=== PATIENT | female | born 1975 | race Caucasian/White ===

== ENCOUNTER 2017-06-19 09:42 | Day surgery (SDC) | payer OTHER ==
[2017-06-17 13:18] VITALS: BMI 25.2
[~2017-06-19 09:42] MED LIST: LACTATED RINGERS 1,000 ML IV SCH
[2017-06-19 11:00] VITALS: RESP 16; TEMP 98.6
[2017-06-19] MEDS ORDERED: LIDOCAINE 1% 20 ML VIAL (10MG/ML) FOR IV START INTRADERMA ONE (11:10)
[2017-06-19] MEDS ORDERED: LIDOCAINE 1% INJ 10MG/ML (20 ML MDV) ONE (11:22)
[2017-06-19] MEDS ORDERED: PROPOFOL 10 MG/ML 20 ML VIAL IV ONE (11:22)
--- NOTE | 2017-06-19 11:44 | P.PCN ---
Date of Procedure: 06/19/17 Preoperative Diagnosis: Postoperative Diagnosis: Procedure(s) Performed: Brief history: Patient is a pleasant 42-year-old white female, scheduled for an elective upper endoscopy as well as colonoscopy as a part of evaluation of severe GERD and alternating diarrhea constipation associated with abdominal bloating for the last 3 years duration. Procedure performed: Esophagogastroduodenoscopy with biopsy Colonoscopy Preoperative diagnosis: GERD Change in bowel habits and abdominal bloating Anesthesia: MAC Procedure: After informed consent was obtained from the patient was brought into the endoscopy unit and IV sedation was administered by anesthesia under continuous monitoring. Initially upper endoscopy was done. The Olympus GF 160 video endoscope was inserted inserted into the mouth and esophagus intubated without any difficulty and was gradually advanced into the stomach and duodenum and carefully examined. The bulb and second part of the duodenum appeared normal. The scope was then withdrawn into the stomach adequately insufflated with air and upon careful examination the antrum and body, cardia and fundus appeared normal. The scope was then withdrawn into the esophagus. The GE junction was located at 40 cm to the incisors. It appeared regular with no erythema erosions or ulcerations. Rest of the esophagus appeared normal. Patient tolerated the procedure well. At this time the patient continued to remain sedation. Initial digital rectal examination was normal. Olympus CF 160 video colonoscope was then inserted into the rectum and gradually advanced to the cecum without any difficulty. Careful examination was performed as the scope was gradually being withdrawn. The prep was excellent. Terminal ileum was visualized and 20 cm seen which appeared normal. The cecum, ascending colon, transverse colon, descending colon , sigmoid colon and rectum appeared normal. Retroflexion was performed in the rectum and no lesions were noted. Patient tolerated the procedure well. Impression: 1. Upper endoscopy revealed mild antral gastritis but no evidence of esophagitis or peptic ulcer disease 2. Colonoscopy was essentially within normal limits with no evidence of colitis or colorectal neoplasia Recommendations: Findings of this examination were discussed with the patient as well as her family. She was advised to follow with the biopsy results. She will continue with her current proton pump inhibitor and follow antireflux measures. She can have a repeat colonoscopy in 10 years Implants: Indications for Procedure: Operative Findings: Description of Procedure:
[2017-06-19 11:48] VITALS: BP 108/56
[2017-06-19 12:01] VITALS: PULSE 78
== END 2017-06-19 12:21 | disposition home or self-care (01) ==
LOC: ORWHC2ENDO 09:42
PROVIDERS: ATTEND Internal Medicine Gastroenterology
DX: R19.4 Change in bowel habit (principal); K21.0 Gastro-esophageal reflux disease with esophagitis; K29.50 Unspecified chronic gastritis without bleeding; Z88.2 Allergy status to sulfonamides; Z79.2 Long term (current) use of antibiotics; Z79.899 Other long term (current) drug therapy
CPT/HCPCS: 88305; 88342; 43239; J2001; J2704

== ENCOUNTER → 2019-12-21 | Outpatient (CLI) | payer OTHER ==
--- NOTE | 2019-12-26 09:31 | MM ---
Reason for exam: screening (asymptomatic). Last mammogram was performed 3 years and 5 months ago. History: Family history of breast cancer in paternal grandmother. Physical Findings: A clinical breast exam by your physician is recommended on an annual basis and results should be correlated with mammographic findings. MG Screening Mammo w CAD Bilateral CC and MLO view(s) were taken. Prior study comparison: July 28, 2016, bilateral MG diagnostic mammo w CAD SON[facility]. August 09, 2015, bilateral MG screening mammo w CAD. The breast tissue is heterogeneously dense. This may lower the sensitivity of mammography. Focal asymmetry left middle position. This finding is changed when compared with previous exams. ASSESSMENT: Incomplete: need additional imaging evaluation, BI-RAD 0 RECOMMENDATION: Special view mammogram of the left breast. If lesion persists on supplemental views, image directed ultrasound is recommended. [facility] will attempt to contact patient to return for supplemental views and ultrasound if indicated.
== END | disposition home or self-care (01) ==
LOC: RADMAMWWP 07:41
PROVIDERS: ATTEND Family Medicine
DX: Z12.31 Encounter for screening mammogram for malignant neoplasm of breast (principal)
CPT/HCPCS: 77067

== ENCOUNTER → 2019-12-30 | Outpatient (CLI) | payer OTHER ==
--- NOTE | 2020-01-02 08:21 | MM ---
Reason for exam: additional evaluation requested from abnormal screening. Last mammogram was performed less than 1 month ago. History: Family history of breast cancer in paternal grandmother. Physical Findings: Nurse did not find any significant physical abnormalities on exam. MG Work Up Mamm w CAD LT Spot compression CC, spot compression MLO, and ML view(s) were taken of the left breast. Prior study comparison: December 21, 2019, bilateral MG screening mammo w CAD. July 28, 2016, bilateral MG diagnostic mammo w CAD SONIA. The breast tissue is heterogeneously dense. This may lower the sensitivity of mammography. The previously seen abnormality resolves on additional views and appears as fibroglandular tissue compatible with summation. These results were verbally communicated with the patient and result sheet given to the patient on 12/30/19. ASSESSMENT: Negative, BI-RAD 1 RECOMMENDATION: Return to routine screening mammogram schedule for both breasts.
== END | disposition home or self-care (01) ==
LOC: RADMAMWWP 14:33
PROVIDERS: ATTEND Family Medicine
DX: R92.8 Other abnormal and inconclusive findings on diagnostic imaging of breast (principal)
CPT/HCPCS: 77065

== ENCOUNTER 2023-10-01 09:31 | Day surgery (SDC) | payer BC, OTHER ==
--- NOTE | 2023-10-01 10:02 | P.GSHP ---
History of Present Illness H&P Date: 10/01/23 CHIEF COMPLAINT: GERD HISTORY OF PRESENT ILLNESS: The patient is a 48-year-old female who presents reports gastroesophageal reflux disease. Upper endoscopy was offered for further evaluation and management. PAST MEDICAL HISTORY: Please see list. PAST SURGICAL HISTORY: Please see list. MEDICATIONS: Please see list. ALLERGIES: Please see list. SOCIAL HISTORY: No illicit drug use FAMILY HISTORY: No reports of Crohn disease or ulcerative colitis. REVIEW OF ORGAN SYSTEMS: CONSTITUTIONAL: No reports of fevers or chills. GI: Denies any blood in stools or constipation. PHYSICAL EXAM: VITAL SIGNS: Stable GENERAL: Well-developed and pleasant in no acute distress. HEENT: No scleral icterus. Extraocular movements grossly intact. Moist buccal mucosa. NECK: Supple without lymphadenopathy. CHEST: Unlabored respirations. Equal bilateral excursions. CARDIOVASCULAR: Regular rate and rhythm. Distal 2+ pulses. ABDOMEN: Soft, nondistended. MUSCULOSKELETAL: No clubbing, cyanosis, or edema. ASSESSMENT: 1. Gastroesophageal reflux disease PLAN: 1. Recommend proceeding with an upper endoscopy Past Medical History Past Medical History: Asthma, GERD/Reflux, Hypertension Additional Past Medical History / Comment(s): constipated and diarrhea. heartburn, with throat irritation and "sometimes blood in emesis". "geographical tongue". bumps around outside of tongue painful. lyme disease with joint issues History of Any Multi-Drug Resistant Organisms: None Reported Past Surgical History: Cholecystectomy, Hysterectomy, Orthopedic Surgery, Tubal Ligation Additional Past Surgical History / Comment(s): knee surg, egd, Past Anesthesia/Blood Transfusion Reactions: No Reported Reaction Additional Past Anesthesia/Blood Transfusion Reaction / Comment(s): no hx blood transfusion Smoking Status: Never smoker - Past Family History Mother Family Medical History: Cancer Additional Family Medical History / Comment(s): uterine Father Family Medical History: No Reported History Medications and Allergies Home Medications Medication Instructions Recorded Confirmed Type Omeprazole [PriLOSEC] 20 mg PO DAILY 06/17/17 09/29/23 History Escitalopram [Lexapro] 20 mg PO DAILY 09/29/23 09/29/23 History Fluticasone Propion/Salmeterol 1 puff INHALATION BID 09/29/23 09/29/23 History [Advair 500-50 Diskus] Losartan/Hydrochlorothiazide 1 each PO DAILY 09/30/23 09/30/23 History [Losartan-Hctz 100-25 mg Tab] Propranolol HCl [Inderal] 60 mg PO BID 09/30/23 09/30/23 History Allergies Allergy/AdvReac Type Severity Reaction Status Date / Time Sulfa (Sulfonamide Allergy Rash/Hives Verified 09/29/23 16:08 Antibiotics)
[2023-10-01] MEDS ORDERED: LACTATED RINGERS 1,000 ML IV ONE (10:12)
[2023-10-01 10:23] VITALS: TEMP 98
[2023-10-01] MEDS ORDERED: PROPOFOL 10 MG/ML 20 ML VIAL IV ONE (10:47)
[2023-10-01] MEDS ORDERED: LIDOCAINE 1% INJ 10MG/ML (20 ML MDV) ONE (10:47)
--- NOTE | 2023-10-01 11:04 | P.PCN ---
Date of Procedure: 10/01/23 Description of Procedure: PREOPERATIVE DIAGNOSIS: Gastroesophageal reflux disease. Epigastric abdominal pain POSTOPERATIVE DIAGNOSIS: Gastroesophageal reflux disease. Gastritis. Diaphragmatic hiatal hernia OPERATION: Esophagogastroduodenoscopy with biopsies along esophagus, antrum and duodenum SURGEON: Robyn Lozada MD ANESTHESIA: MAC. INDICATIONS: The patient is a 48-year-old female who presents with reflux disease. Benefits and risks of the procedure were described. Informed consent was obtained. DESCRIPTION: The patient was brought into the endoscopy suite and laid in the left lateral decubitus position. An Olympus gastroscope was passed along the posterior oropharynx down to the distal esophagus where the squamocolumnar junction was encountered at 37 cm from the incisors. The stomach was entered and no bile reflux was found. Additional findings are listed below. Biopsies with cold forceps were obtained of the antrum. The first through third portion of the duodenum was examined. Retroflexion of the scope confirmed Hill grade 2 lower esophageal valve. The squamocolumnar junction demonstrated LA grade B erosive esophagitis. The stomach was desufflated. The patient tolerated the procedure well. FINDINGS: Squamocolumnar junction 37 cm from the incisors. Diaphragmatic hiatus at 40 cm. Hiatal hernia, 3 cm, sliding type Hill grade 2 lower esophageal valve. LA grade B erosive esophagitis. biopsies obtained Biopsies obtained of the duodenum. Chronic gastritis with biopsies obtained. RECOMMENDATIONS: Recommend antireflux operation. Plan - Discharge Summary Discharge Rx Participant: No New Discharge Prescriptions: Continue Omeprazole [PriLOSEC] 20 mg PO DAILY Escitalopram [Lexapro] 20 mg PO DAILY Fluticasone Propion/Salmeterol [Advair 500-50 Diskus] 1 puff INHALATION BID Losartan/Hydrochlorothiazide [Losartan-Hctz 100-25 mg Tab] 1 each PO DAILY Propranolol HCl [Inderal] 60 mg PO BID Discharge Medication List Omeprazole [PriLOSEC] 20 mg PO DAILY 06/17/17 [History] Escitalopram [Lexapro] 20 mg PO DAILY 09/29/23 [History] Fluticasone Propion/Salmeterol [Advair 500-50 Diskus] 1 puff INHALATION BID 09/29/23 [History] Losartan/Hydrochlorothiazide [Losartan-Hctz 100-25 mg Tab] 1 each PO DAILY 09/30/23 [History] Propranolol HCl [Inderal] 60 mg PO BID 09/30/23 [History] Follow up Appointment(s)/Referral(s): Robyn Lozada MD [STAFF PHYSICIAN] - 10/27/23 9:30 am Patient Instructions/Handouts: Hiatal Hernia (DC) Discharge Disposition: HOME SELF-CARE
[2023-10-01 11:31] VITALS: BP 119/61; PULSE 64; RESP 16
== END 2023-10-01 11:42 | disposition home or self-care (01) ==
LOC: ORWHC2ENDO 09:31
PROVIDERS: ATTEND Surgery Plastic and Reconstructive Surgery
DX: K29.50 Unspecified chronic gastritis without bleeding (principal); K21.00 Gastro-esophageal reflux disease with esophagitis, without bleeding; K44.9 Diaphragmatic hernia without obstruction or gangrene; I10 Essential (primary) hypertension; F41.9 Anxiety disorder, unspecified; F32.A Depression, unspecified; J45.909 Unspecified asthma, uncomplicated; Z88.1 Allergy status to other antibiotic agents; Z88.2 Allergy status to sulfonamides; Z79.899 Other long term (current) drug therapy; Z79.51 Long term (current) use of inhaled steroids; Z90.49 Acquired absence of other specified parts of digestive tract; Z98.890 Other specified postprocedural states
CPT/HCPCS: 88305; 88312; 43239; J2001; J2704

== ENCOUNTER 2023-11-10 11:31 | Emergency (ER) | payer BC, OTHER ==
[2023-11-10] MEDS ORDERED: SODIUM CHLORIDE 0.9% 1,000 ML IV STA (11:54)
[2023-11-10] MEDS ORDERED: KETOROLAC 15 MG/ML 1 ML VIAL IVP STA ×2 (11:54→15:55)
--- NOTE | 2023-11-10 12:05 | ED ---
Abdominal Pain HPI - General Chief Complaint: Abdominal Pain Stated Complaint: Abd pain Time Seen by Provider: 11/10/23 11:40 Source: patient, RN notes reviewed Mode of arrival: ambulatory Limitations: no limitations - History of Present Illness Initial Comments: This is a 48-year-old female who presents to the emergency department for abdominal pain. States that this is the lower abdomen with radiation into the back. Pain is occurring on both sides, but is worse on the left. She has had nausea but no vomiting. She is having both diarrhea and constipation, which she states always happens to her due to IBS. Symptoms have been going on for a few days at this point. She reports a history of kidney stones, and thought that she had blood in her urine at one point because her urine was dark. However, she saw her primary care provider this morning, and was told that her urine was normal. States that this also feels somewhat different than prior kidney stones. Her PCP advised she come to the emergency department for a CT scan to evaluate for the possibility of diverticulitis. Denies any history of diverticulitis. MD Complaint: abdominal pain - Related Data Home Medications Medication Instructions Recorded Confirmed Omeprazole [PriLOSEC] 20 mg PO DAILY 06/17/17 09/29/23 Escitalopram [Lexapro] 20 mg PO DAILY 09/29/23 09/29/23 Fluticasone Propion/Salmeterol 1 puff INHALATION BID 09/29/23 09/29/23 [Advair 500-50 Diskus] Losartan/Hydrochlorothiazide 1 each PO DAILY 09/30/23 09/30/23 [Losartan-Hctz 100-25 mg Tab] Propranolol HCl [Inderal] 60 mg PO BID 09/30/23 09/30/23 Previous Rx's Medication Instructions Recorded Ibuprofen [Motrin] 800 mg PO Q8H PRN #30 tab 11/10/23 Lactulose 10 - 20 gm PO DAILY PRN #473 ml 11/10/23 Ondansetron Odt [Zofran Odt] 4 mg PO Q8HR PRN #20 tab 11/10/23 Allergies Allergy/AdvReac Type Severity Reaction Status Date / Time sulfamethoxazole AdvReac Nausea & Verified 11/10/23 16:07 [From Bactrim] Vomiting trimethoprim [From Bactrim] AdvReac Nausea & Verified 01/09/24 16:07 Vomiting Review of Systems ROS Statement: Those systems with pertinent positive or pertinent negative responses have been documented in the HPI. ROS Other: All systems not noted in ROS Statement are negative. Past Medical History Past Medical History: Asthma, GERD/Reflux, Hypertension Additional Past Medical History / Comment(s): constipated and diarrhea. heartburn, with throat irritation and "sometimes blood in emesis". "g eographical tongue". bumps around outside of tongue painful. lyme disease with joint issues History of Any Multi-Drug Resistant Organisms: None Reported Past Surgical History: Cholecystectomy, Hysterectomy, Orthopedic Surgery, Tubal Ligation Additional Past Surgical History / Comment(s): knee surg, egd, Past Anesthesia/Blood Transfusion Reactions: No Reported Reaction Additional Past Anesthesia/Blood Transfusion Reaction / Comment(s): no hx blood transfusion Past Psychological History: Anxiety, Depression Smoking Status: Never smoker - Past Family History Mother Family Medical History: Cancer Additional Family Medical History / Comment(s): uterine Father Family Medical History: No Reported History General Exam Limitations: no limitations General appearance: alert, in no apparent distress Head exam: Present: atraumatic, normocephalic, normal inspection Respiratory exam: Present: normal lung sounds bilaterally. Absent: respiratory distress, wheezes, rales, rhonchi, stridor Cardiovascular Exam: Present: regular rate, normal rhythm, normal heart sounds. Absent: systolic murmur, diastolic murmur, rubs, gallop, clicks GI/Abdominal exam: Present: soft, tenderness (LLQ), normal bowel sounds. Absent: distended Back exam: Absent: CVA tenderness (R), CVA tenderness (L) Neurological exam: Present: alert, oriented X3, CN II-XII intact Psychiatric exam: Present: normal affect, normal mood Skin exam: Present: warm, dry, intact, normal color. Absent: rash Course Vital Signs 11/10/23 11/10/23 11/10/23 11:37 13:55 16:12 Temperature 98.8 F 98.1 F Pulse Rate 84 81 74 Respiratory 16 18 18 Rate Blood Pressure 167/99 157/82 148/92 O2 Sat by Pulse 99 99 100 Oximetry Medical Decision Making - Medical Decision Making This is a 48-year-old female who presents to the emergency department for abdominal pain. Was pt. sent in by a medical professional or institution? @ -Her PCP Did you speak to anyone other than the patient for history? @ -No Did you review nursing and triage notes? @ -Yes, and I agree, it is accurate with regards to the patient's symptoms. Were old charts reviewed? @ -No Differential Diagnosis? @ -Differential Abdominal Pain Women: Appendicitis, Cholecystitis, diverticulosis, ischemic bowel, pancreatitis, hepatitis, UTI, gastroenteritis, AAA, incarcerated hernia, bowel obstruction, constipation, inflammatory bowel, hepatitis, peptic ulcer disease, splenic infarction, perforated viscus, vulvitis, ovarian torsion, PID, kidney stone, placenta abruption, this is not meant to be an all-inclusive list EKG interpreted by me (3pts min.)? @ -Not obtained X-rays interpreted by me (1pt min.)? @ -Not obtaiend CT interpreted by me (1pt min.)? @ -CT scan of the abdomen and pelvis obtained. My interpretation identifies no evidence of diverticulitis or a ureteral calculus. U/S interpreted by me (1pt. min.)? @ -Transvaginal US obtained. My interpretation identifies no evidence of an ovarian torsion. What testing was considered but not performed? (CT, X-rays, U/S, labs)? Why? @ -None What meds were considered but not given? Why? @ -None Did you discuss the management of the patient with other professionals? @ -No Did you reconcile home meds? @ -No Was smoking cessation discussed for >3mins.? @ -No Was critical care preformed (if so, how long)? @ -No Were there social determinants of health that impacted care today? How? (Homelessness, low income, unemployed, alcoholism, drug addiction, transpo rtation, low edu. Level, literacy, decrease access to med. care, longterm, rehab)? @ -No Was there de-escalation of care discussed even if they declined? (Discuss DNR or withdrawal of care, Hospice)? @ -No What co-morbidities impacted this encounter? (DM, HTN, Smoking, COPD, CAD, Cancer, CVA, Hep., AIDS, mental health diagnosis, sleep apnea, morbid obesity)? @ -IBS Was patient admitted / discharged? @ -Discharged. Lab work obtained and found to be nonactionable. She has mild hyperkalemia with a potassium of 5.3, however this was hemolyzed. Urinalysis negative for blood and infection. She was treated with IV fluids and Toradol with some improvement in symptoms. CT scan of the abdomen and pelvis obtained demonstrating no definite acute obstructive or inflammatory process to explain the pain. She does have a short segment of narrowing in the distal sigmoid col on that was said to be physiologic or related to nondistention, however inflammatory narrowing could also have this appearance. Moderate stool burden was also evident. Additionally, she was found to have areas of increased attenuation on the right ovary suggestive of hemorrhagic cysts. There were no acute findings on the left ovary where her pain was more prominent. Findings reviewed with the patient in that her pain could be due to the constipation and potential inflammatory changes on the computed tomography scan. I did however also offer to proceed with a pelvic ultrasound for further evaluation of the ovarian cysts. Patient requests we proceed and a transvaginal ultrasound was subsequently obtained. This identified the hypoechoic lesions in the right ovary that were demonstrated on the computed tomography scan, thought to be hemorrhagic cysts. Evaluation of the left ovary was limited by overlying bowel gas, however there was no evidence of ovarian torsion. Her symptoms were controlled the emergency department. Prescription for ibuprofen, Zofran, and lactulose provided with dosing instructions reviewed. Otherwise advised follow up with her primary care provider. Undiagnosed new problem with uncertain prognosis? @ -None Drug Therapy requiring intensive monitoring for toxicity (Heparin, Nitro, Insulin, Cardizem)? @ -None Were any procedures done? @ -None Diagnosis/symptom? @ -Abdominal pain, nausea, constipation Acute, or Chronic, or Acute on Chronic? @ -Acute Uncomplicated (without systemic symptoms) or Complicated (systemic symptoms)? @ -Uncomplicated Side effects of treatment? @ -None Exacerbation, Progression, or Severe Exacerbation] @ -Not applicable Poses a threat to life or bodily function? @ -No Return precautions reviewed in depth, the patient is instructed to return to the emergency department with any new, worsening, or concerning symptoms. Patient verbalized understanding. This case was discussed in detail with the attending ED physician, Dr. Valdovinos. Presentation, findings, and treatment plan discussed in detail as well. - Lab Data Result diagrams: 11/10/23 12:05 11/10/23 12:05 Lab Results 11/10/23 11/10/23 11/10/23 Range/Units 12:05 12:05 12:05 WBC 8.4 (3.8-10.6) k/uL RBC 4.35 (3.80-5.40) m/uL Hgb 14.7 (11.4-16.0) gm/dL Hct 43.9 (34.0-46.0) % MCV 100.9 H (80.0-100.0) fL MCH 33.7 (25.0-35.0) pg MCHC 33.4 (31.0-37.0) g/dL RDW 12.5 (11.5-15.5) % Plt Count 315 (150-450) k/uL MPV 7.0 Neutrophils % 58 % Lymphocytes % 34 % Monocytes % 3 % Eosinophils % 2 % Basophils % 1 % Neutrophils # 4.9 (1.3-7.7) k/uL Lymphocytes # 2.9 (1.0-4.8) k/uL Monocytes # 0.3 (0-1.0) k/uL Eosinophils # 0.2 (0-0.7) k/uL Basophils # 0.1 (0-0.2) k/uL Sodium 136 L (137-145) mmol/L Potassium 5.3 H (3.5-5.1) mmol/L Chloride 103 (98-107) mmol/L Carbon Dioxide 19 L (22-30) mmol/L Anion Gap 14 mmol/L BUN 12 (7-17) mg/dL Creatinine 0.49 L (0.52-1.04) mg/dL Est GFR (CKD-EPI)AfAm >90 (>60 ml/min/1.73 sqM) Est GFR (CKD-EPI)NonAf >90 (>60 ml/min/1.73 sqM) Glucose 97 (74-99) mg/dL Plasma Lactic Acid [place] 1.0 (0.7-2.0) mmol/L Calcium 9.6 (8.4-10.2) mg/dL Total Bilirubin 1.0 (0.2-1.3) mg/dL AST 39 H (14-36) U/L ALT 21 (4-34) U/L Alkaline Phosphatase 58 (38-126) U/L Total Protein 8.4 H (6.3-8.2) g/dL Albumin 4.9 (3.5-5.0) g/dL Amylase 70 (30-110) U/L Lipase 124 (23-300) U/L Urine Color Urine Appearance (Clear) Urine pH (5.0-8.0) Ur Specific [place] (1.001-1.035) Urine Protein (Negative) Urine Glucose (UA) (Negative) Urine Ketones (Negative) Urine Blood (Negative) Urine Nitrite (Negative) Urine Bilirubin (Negative) Urine Urobilinogen (<2.0) mg/dL Ur Leukocyte Esterase (Negative) 11/10/23 Range/Units 12:44 WBC (3.8-10.6) k/uL RBC (3.80-5.40) m/uL Hgb (11.4-16.0) gm/dL Hct (34.0-46.0) % MCV (80.0-100.0) fL MCH (25.0-35.0) pg MCHC (31.0-37.0) g/dL RDW (11.5-15.5) % Plt Count (150-450) k/uL MPV Neutrophils % % Lymphocytes % % Monocytes % % Eosinophils % % Basophils % % Neutrophils # (1.3-7.7) k/uL Lymphocytes # (1.0-4.8) k/uL Monocytes # (0-1.0) k/uL Eosinophils # (0-0.7) k/uL Basophils # (0-0.2) k/uL Sodium (137-145) mmol/L Potassium (3.5-5.1) mmol/L Chloride (98-107) mmol/L Carbon Dioxide (22-30) mmol/L Anion Gap mmol/L BUN (7-17) mg/dL Creatinine (0.52-1.04) mg/dL Est GFR (CKD-EPI)AfAm (>60 ml/min/1.73 sqM) Est GFR (CKD-EPI)NonAf (>60 ml/min/1.73 sqM) Glucose (74-99) mg/dL Plasma Lactic Acid [place] (0.7-2.0) mmol/L Calcium (8.4-10.2) mg/dL Total Bilirubin (0.2-1.3) mg/dL AST (14-36) U/L ALT (4-34) U/L Alkaline Phosphatase (38-126) U/L Total Protein (6.3-8.2) g/dL Albumin (3.5-5.0) g/dL Amylase (30-110) U/L Lipase (23-300) U/L Urine Color Colorless Urine Appearance Clear (Clear) Urine pH 7.0 (5.0-8.0) Ur Specific [place] 1.044 H (1.001-1.035) Urine Protein Negative (Negative) Urine Glucose (UA) Negative (Negative) Urine Ketones Negative (Negative) Urine Blood Negative (Negative) Urine Nitrite Negative (Negative) Urine Bilirubin Negative (Negative) Urine Urobilinogen <2.0 (<2.0) mg/dL Ur Leukocyte Esterase Negative (Negative) - Radiology Data Radiology results: report reviewed, image reviewed Disposition Clinical Impression: Abdominal pain, Constipation Disposition: HOME SELF-CARE Instructions (If sedation given, give patient instructions): Irritable Bowel Syndrome (ED), Constipation (ED), Abdominal Pain (ED) Additional Instructions: Return to the emergency department with any new, worsening, or concerning symptoms. Alternate with ibuprofen and Tylenol as needed for pain relief. You can take Zofran up to every 8 hours as needed for nausea and vomiting. You can take the Lactulose daily for the constipation as well. Follow up with your primary care provider in 1-2 days. Prescriptions: Lactulose 10 - 20 gm PO DAILY PRN #473 ml PRN Reason: Constipation Ibuprofen [Motrin] 800 mg PO Q8H PRN #30 tab PRN Reason: Pain Ondansetron Odt [Zofran Odt] 4 mg PO Q8HR PRN #20 tab PRN Reason: Nausea And Vomiting Is patient prescribed a controlled substance at d/c from ED?: No Referrals: Kurt Johnson MD [Primary Care Provider] - 1-2 days Time of Disposition: 15:58
[2023-11-10 12:14] LABS: Basophils # (A) 0.1 k/uL (0-0.2); Basophils % (A) 1 %; Eosinophils # (A) 0.2 k/uL (0-0.7); Eosinophils % (A) 2 %; HCT 43.9 % (34.0-46.0); HGB 14.7 gm/dL (11.4-16.0); Lymphocytes # (A) 2.9 k/uL (1.0-4.8); Lymphocytes % (A) 34 %; MCH 33.7 pg (25.0-35.0); MCHC 33.4 g/dL (31.0-37.0); MCV 100.9 fL (80.0-100.0); Monocytes # (A) 0.3 k/uL (0-1.0); Monocytes % (A) 3 %; Neutrophils # (A) 4.9 k/uL (1.3-7.7); Neutrophils % (A) 58 %; Platelet Count 315 k/uL (150-450); RBC 4.35 m/uL (3.80-5.40); RDW 12.5 % (11.5-15.5); WBC 8.4 k/uL (3.8-10.6)
[2023-11-10 12:31] LABS: ALT 21 U/L (4-34); AST 39 U/L (14-36); African American GFR (CKD) >90 (>60 ml/min/1.73 sqM); Albumin 4.9 g/dL (3.5-5.0); Alkaline Phosphatase 58 U/L (38-126); Amylase 70 U/L (30-110); Anion Gap 14 mmol/L; Blood Urea Nitrogen 12 mg/dL (7-17); Calcium 9.6 mg/dL (8.4-10.2); Carbon Dioxide 19 mmol/L (22-30); Chloride 103 mmol/L (98-107); Glucose 97 mg/dL (74-99); Lipase 124 U/L (23-300); Non-African American GFR(CKD) >90 (>60 ml/min/1.73 sqM); Sodium 136 mmol/L (137-145); Total Protein 8.4 g/dL (6.3-8.2)
[2023-11-10 12:34] LABS: Potassium 5.3 mmol/L (3.5-5.1)
[2023-11-10 12:56] LABS: Appearance,Urine Clear (Clear); Bilirubin,Urine Negative (Negative); Blood,Urine Negative (Negative); Color,Urine Colorless; Glucose,Urine (UA) Negative (Negative); Ketones,Urine Negative (Negative); Leukocyte Esterase,Urine Negative (Negative); Nitrite,Urine Negative (Negative); Protein,Urine Negative (Negative); Specific Gravity,Urine 1.044 (1.001-1.035); Urobilinogen,Urine <2.0 mg/dL (<2.0)
--- NOTE | 2023-11-10 13:59 | CT ---
EXAMINATION TYPE: CT abdomen pelvis w con CT DLP: 689.9 mGycm, Automated exposure control for dose reduction was used. DATE OF EXAM: 11/10/2023 12:20 PM COMPARISON: None. CLINICAL INDICATION:Female, 48 years old with history of LLQ abdominal pain; LLQ pain that radiates t o the back TECHNIQUE: Axial CT of the abdomen and pelvis. Sagittal and coronal reformats were created on a [employer] workstation. Contrast used:100ml mL of Isovue 300 with IV Contrast, (none if empty) Oral contrast used: without Oral Contrast (none if empty) FINDINGS: LOWER CHEST: Mild bibasilar scarring and/or subsegmental atelectasis. ABDOMEN LIVER: Unremarkable GALLBLADDER AND BILE DUCTS: The gallbladder is surgically absent. Biliary tree is prominent with the CBD up to 8 mm, however not really excessive for post cholecystectomy status. This could be correlate d with LFTs as needed. PANCREAS: Unremarkable. SPLEEN: Spleen is unremarkable. Adjacent 2.3 cm splenule. ADRENAL GLANDS: Unremarkable. KIDNEYS AND URETERS: Kidneys enhance symmetrically. No evidence of hydronephrosis or visible renal ca lculus. The ureters are unremarkable. PELVIS BLADDER: Not fully distended with a mildly thickened appearance of the wall. REPRODUCTIVE: The uterus appears small or absent, correlate for hysterectomy. Ovaries are present, t he left is unremarkable. The right shows a couple of nodules of increased attenuation peripherally me asuring 1.6 cm and 1.8 cm, suggesting hemorrhagic cysts or involuting follicles. ABDOMEN & PELVIS STOMACH AND BOWEL: Stomach and small bowel are nondistended, no evidence of obstruction. The append ix appears within normal limits. There is a moderate to large amount of stool throughout the colon, correlate for constipation. Clip seen between the right colon and liver, may have fallen from the ch olecystectomy. Some segments of colon are nondistended/collapsed and not well assessed. In the dista l colon, there is a short segment of narrowing which could be nondistention but its inflammatory narr owing could have this appearance. No definite areas of pericolonic fat stranding. PERITONEUM/RETROPERITONEUM: No evidence of pneumoperitoneum or free fluid. VASCULATURE: Aorta and major branches are grossly unremarkable. No AAA. Portal veins are enhancing. Splenic vein is patent. LYMPH NODES: No gross evidence for lymphadenopathy. SOFT TISSUE/ABDOMINAL WALL: Unremarkable MUSCULOSKELETAL: No acute osseous abnormalities. Mild disc degeneration changes are present throughou t the thoracolumbar spine. IMPRESSION: 1. No definite acute obstructive or inflammatory process to explain abdominal pain. 2. Short segment narrowing in the distal sigmoid colon, could be physiologic/nondistention, but infl ammatory narrowing could have this appearance. 3. Moderate stool throughout the more proximal aspects of the colon. Appendix appears within normal limits. No signs of SBO. 4. Mildly thickened appearance of the urinary bladder wall, could be due to incomplete distention or bladder wall hypertrophy, but correlate clinically to exclude cystitis. 5. Right ovarian findings suggestive of hemorrhagic cysts and/or involuting follicles.
[2023-11-10 14:17] VITALS: RESP 18
--- NOTE | 2023-11-10 15:35 | US ---
EXAMINATION TYPE: US transvaginal plus Doppler DATE OF EXAM: 11/10/2023 COMPARISON: 11/10/2023 CT- Right ovarian lesions CLINICAL INDICATION: Female, 48 years old with history of Pelvic pain, ovarian cyst on CT; TECHNIQUE: Transabdominal sonographic images were not ordered. Transvaginal sonographic images were m edically necessary. Color Doppler spectral waveform analysis of the ovarian arteries and veins. Date of LMP: Unknown EXAM MEASUREMENTS: Uterus: Surgically absent Endometrial Stripe: Surgically absent Right Ovary: 3.8 x 2.1 x 2.7 cm for a volume of 11.4 mL. Left Ovary: 2.0 x 1.2 x 2.0 cm for a volume of 2.6 mL. 1. Uterus: Surgically absent 2. Endometrium: Surgically absent 3. Right Ovary: A few hypoechoic lesions with internal echoes noted, largest = 1.6 x 1.8 x 1.4 cm 4. Left Ovary: limited visualization due to bowel gas Spectral, color and waveform doppler imaging shows good arterial and venous flow within the ovaries ; there is no evidence for ovarian torsion. 5. Bilateral Adnexa: wnl 6. Posterior cul-de-sac: trace fluid IMPRESSION: 1. A few hypoechoic lesions within the right ovary measuring up to 1.8 cm. Probable hemorrhagic corpu s luteum or hemorrhagic cysts. Follow-up in 6-8 weeks to assess for involution. 2. No sonographic evidence for ovarian torsion on either side. 3. Status post hysterectomy. 4. Trace pelvic free fluid likely physiologic.
[2023-11-10] MEDS ORDERED: MORPHINE SULFATE 4 MG/ML SYRINGE IVP STA (15:40)
[2023-11-10] MEDS ORDERED: ACET/COD 300 MG/30 MG STARTER PACK 6 TAB BTL PO STA (15:55)
[2023-11-10 16:17] VITALS: BP 148/92; PULSE 74; TEMP 98.1
== END 2023-11-10 16:14 | disposition home or self-care (01) ==
LOC: EC 11:31
DX: K59.00 Constipation, unspecified (principal); J45.909 Unspecified asthma, uncomplicated; K21.9 Gastro-esophageal reflux disease without esophagitis; I10 Essential (primary) hypertension; F41.9 Anxiety disorder, unspecified; F32.A Depression, unspecified; Z79.51 Long term (current) use of inhaled steroids; Z79.899 Other long term (current) drug therapy; Z88.2 Allergy status to sulfonamides; Z88.1 Allergy status to other antibiotic agents
CPT/HCPCS: 36415; 80053; 82150; 83605; 83690; 85025; 81003; 93975; 76830; 74177; 99284; 96374; 96376; J1885; Q9967

== ENCOUNTER → 2024-02-23 | Outpatient (CLI) | payer BC, OTHER ==
--- NOTE | 2024-02-24 20:59 | XR ---
EXAMINATION TYPE: XR shoulder complete 2 views LT DATE OF EXAM: 02/23/2024 Comparison: None Clinical History: 49-year-old female M25.512 L shoulder pain Findings: Mild degenerative spurring at the AC joint. Subacromial space is preserved. Only 2 views are provided . Consider the addition of a conventional AP external rotation view to assess the greater tuberosity. On these 2 views, no acute fracture, subluxation, dislocation is seen. Impression: Mild degenerative spurring at the AC joint. Only 2 views are provided. Consider the addition of a con ventional AP external rotation view to assess the greater tuberosity. No acute osseous abnormality se en on these 2 views.
== END | disposition home or self-care (01) ==
LOC: RADXRMAIN 12:37
PROVIDERS: ATTEND Family Medicine
DX: M19.012 Primary osteoarthritis, left shoulder (principal); S49.92XA Unspecified injury of left shoulder and upper arm, initial encounter; X58.XXXA Exposure to other specified factors, initial encounter

== ENCOUNTER → 2024-05-23 | Outpatient (CLI) | payer BC, OTHER ==
--- NOTE | 2024-05-23 16:30 | MR ---
EXAMINATION TYPE: MR shoulder LT wo con DATE OF EXAM: 05/23/2024 COMPARISON: None HISTORY: Left shoulder pain x6 months, difficult to raise arm, lifted a heavy bucket and fell on ice TECHNIQUE: Multiplanar, multisequence imaging of the left shoulder is performed without contrast. FINDINGS: There is abnormal signal intensity in the superior and posterior aspect of the humeral head consisten t with Hill-Sachs deformity with contusion but no discrete fracture. There is mild degeneration of the AC joint. There is no rotator cuff tear in the rotator cuff tendons are intact. There is no subacromial or subdeltoid bursitis. The biceps tendon is normal in signal intensity and position within the bicipital groove and the prudence ps anchor is intact. There is a SLAP injury with tear of the superior cartilaginous labrum. Impression: 1. SLAP injury. 2. No rotator cuff tear. 3. Mild degeneration of the AC joint. 4. Abnormal signal intensity within the humeral head possibly indicating a Hill-Sachs deformity.
== END | disposition home or self-care (01) ==
LOC: RADMRIMAIN 14:53
PROVIDERS: ATTEND Family Medicine
DX: M75.102 Unspecified rotator cuff tear or rupture of left shoulder, not specified as traumatic (principal); M19.012 Primary osteoarthritis, left shoulder; S49.82XA Other specified injuries of left shoulder and upper arm, initial encounter

== ENCOUNTER → 2024-09-05 | Outpatient (CLI) | payer BC ==
--- NOTE | 2024-09-05 08:37 | MM ---
Reason for Exam: Clinical finding. Last mammogram was performed 4 year(s) and 9 month(s) ago. Indicated Problems: Palpable abnormality of the left side for 2 Week(s). Patient History: Menarche at age 8. First Full-Term at age 19. Left ovary removed at age 36. Right ovary removed at age 36. Hysterectomy at age 36. Postmenopausal. Paternal grandmother had breast cancer. Risk Values: Jodi 5 year model risk: 0.9%. NCI Lifetime model risk: 8.8%. Prior Study Comparison: 08/09/2015 Bilateral Screening Mammogram, [facility]. 08/14/2015 Left Diagnostic Mammogram, [facility]. 07/28/2016 Bilateral Diagnostic Mammogram, [facility]. 12/21/2019 Bilateral Screening Mammogram, [facility]. 12/30/2019 Left Diagnostic Mammogram, [facility]. Tissue Density: The breasts are heterogeneously dense, which may obscure small masses. Findings: Analyzed By CAD. The pattern is symmetrical. There is a 1.5 cm oval density with circumscribed margins upper outer quadrant posterior right breast 10 cm. Additional evaluation with ultrasound is recommended. Palpable area marked in the left axillary region. This appears to correlate with some lymphadenopathy. Ultrasound is recommended for additional evaluation. There is stable lobular density within the posterior outer left breast. No suspicious groups of microcalcifications, spiculated or lobular masses, architectural distortion or other secondary signs of malignancy are mammographically apparent. Overall Assessment: Incomplete: need additional imaging evaluation, BI-RAD 0 Management: Diagnostic Breast Ultrasound of both breasts. A negative mammogram report should not preclude additional follow up of suspicious palpable abnormalities. Patient should continue monthly self breast exam. A clinical breast exam by your physician is recommended on an annual basis and results should be correlated with mammographic findings. Note on Jodi scores and lifetime risk: 1. A Jodi score greater than 3% is considered moderate risk. If this is the case, consider specialist referral to assess eligibility for a risk reducing agent. 2. If overall lifetime risk for the development of breast cancer is 20% or higher, the patient may qualify for future screening with alternating mammogram and breast MRI. [facility], , 09/05/2024 8:35 AM. Electronically signed and approved by: Prem Campo D.O. Radiologis
--- NOTE | 2024-09-05 09:02 | USB ---
Reason for Exam: Clinical finding. Patient History: Menarche at age 8. First Full-Term at age 19. Left ovary removed at age 36. Right ovary removed at age 36. Hysterectomy at age 36. Postmenopausal. Paternal grandmother had breast cancer. Risk Values: Jodi 5 year model risk: 0.9%. NCI Lifetime model risk: 8.8%. Technique: Method: Targeted. Prior Study Comparison: 07/28/2016 Bilateral Diagnostic Mammogram, [facility]. 12/21/2019 Bilateral Screening Mammogram, [facility]. 12/30/2019 Left Diagnostic Mammogram, [facility]. Findings: The upper outer quadrant of the right breast and the axilla of both breasts were scanned. At the 10:00 position right breast 10 cm the nipple is a 1.7 x 0.6 x 1.8 cm simple appearing cyst. Within the left axillary tail of the palpable region is a 1.6 x 0.7 x 1.0 cm simple appearing lymph node. No thickened cortex is evident. This correlates with the palpable abnormality. Overall Assessment: Benign, BI-RAD 2 Management: Screening Mammogram of both breasts in 1 year. A clinical breast exam by your physician is recommended on an annual basis and results should be correlated with mammographic findings. This exam should not preclude additional follow-up of suspicious palpable abnormalities. Results were given to the patient verbally at the time of exam. [facility], , 09/05/2024 8:58 AM. Electronically signed and approved by: Prem Campo D.O. Radiologis
== END | disposition home or self-care (01) ==
LOC: RADMAMWWP 07:48
PROVIDERS: ATTEND Family Medicine
DX: R92.8 Other abnormal and inconclusive findings on diagnostic imaging of breast (principal); N63.0 Unspecified lump in unspecified breast; Z80.3 Family history of malignant neoplasm of breast; Z78.0 Asymptomatic menopausal state
CPT/HCPCS: 77062; 77066